=== PATIENT | female | born 1980 ===

== ENCOUNTER → 2018-07-29 | Outpatient (CLI) | payer BC ==
[~2018-07-29] MED LIST: IOHEXOL 350 MG/ML 100 ML (OMNIPAQUE 350) VIAL IV ONE; NS 100 ML (IVPB) BAG IV ONE; RECEIVED CONTRAST 20 ML VIAL IV SCH
[2018-07-29 10:44] LABS: ALANINE AMINOTRANSFERASE 61 U/L (0-55); ALBUMIN 4.3 GM/DL (3.2-4.5); ALKALINE PHOSPHATASE 96 U/L (40-136); BILIRUBIN,TOTAL 0.5 MG/DL (0.1-1.0); BUN/CREATININE RATIO 14; CALCIUM 9.2 MG/DL (8.5-10.1); CARBON DIOXIDE 21 MMOL/L (21-32); CHLORIDE 103 MMOL/L (98-107); CREATININE SERUM 0.87 MG/DL (0.60-1.30); GFR ESTIMATED > 60; GLUCOSE 374 MG/DL (70-105); SODIUM 136 MMOL/L (135-145); TOTAL PROTEIN 7.4 GM/DL (6.4-8.2)
--- NOTE | 2018-07-29 11:13 | Diagnostic Imaging Report ---
PROCEDURE: CT abdomen and pelvis with contrast. TECHNIQUE: Multiple contiguous axial images were obtained through the abdomen and pelvis after administration of intravenous contrast. INDICATION: Right lower quadrant abdominal pain. COMPARISON: None. FINDINGS: Diffuse fatty infiltration of the liver. The gallbladder, pancreas, spleen, adrenals, kidneys, collecting systems and bladder are negative. Heterogeneous low-attenuation regions in the cervix and the cervical os are indeterminate. Normal appendix. Advanced colonic diverticulosis. No evidence of active diverticulitis. No free intraperitoneal air or fluid. No lymphadenopathy. No evidence of bowel obstruction. Advanced degenerative endplate changes at L4-L5. No acute osseous findings. IMPRESSION: 1. No acute CT findings in the abdomen or pelvis. 2. Indeterminate low-attenuation heterogeneous regions in the cervix and cervical os. Recommend further characterization. 3. Advanced colonic diverticulosis without evidence of active diverticulitis. 4. Hepatic steatosis. Dictated by: Dictated on workstation # [id number]
== END ==
LOC: RAD 10:04
PROVIDERS: ATTEND Pediatrics
DX: E11.65 Type 2 diabetes mellitus with hyperglycemia (principal); K57.30 Diverticulosis of large intestine without perforation or abscess without bleeding; K76.0 Fatty (change of) liver, not elsewhere classified
CPT/HCPCS: 36415; 74177; 80053; 83036

== ENCOUNTER → 2018-08-01 | Outpatient (CLI) | payer BC ==
--- NOTE | 2018-08-01 16:00 | Diagnostic Imaging Report ---
PROCEDURE: US Non-ob pelvis comp/trans. TECHNIQUE: Multiple realtime grayscale images were obtained of the pelvis in various projections endovaginally. Transabdominal imaging was also performed. INDICATION: Right lower quadrant abdominal pain. FINDINGS: Uterus measures 8.5 x 4.1 x 3.7 cm. There are multiple cervical nabothian cysts, largest approximately 15 mm in size. Endometrium is thickened up to 16 mm and does show some cystic changes. No myometrial mass is identified. The right ovary measures 3.0 x 2.8 x 3.0 cm and the left ovary measures 3.3 x 2.3 x 2.7 cm. There is blood flow to both ovaries. No adnexal mass or free fluid is seen. IMPRESSION: Endometrial thickening up to 16 mm with cystic changes. No other significant abnormality is seen. Dictated by: Dictated on workstation # [id number]
== END ==
LOC: RAD 15:09
PROVIDERS: ATTEND Pediatrics
DX: N85.8 Other specified noninflammatory disorders of uterus (principal); R10.31 Right lower quadrant pain
CPT/HCPCS: 76830; 76856